=== PATIENT | female | born 1970 | race Caucasian/White ===

== ENCOUNTER → 2016-03-01 | Outpatient (CLI) | payer OTHER ==
--- NOTE | 2016-03-01 14:11 | PN ---
DATE OF SERVICE: 03/01/2016 A 45-year-old lady who has been followed in the Sleep Center for treatment of idiopathic hypersomnia. Presently, she is on treatment with modafinil 400 mg. She is taking medication in the morning after she wakes up at around 4:30 a.m. 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 and then from 3 p.m. until 8 p.m. when she goes to bed she feels significant sleepy. MEDICATION: Modafinil 400 mg q.a.m. During physical exam, patient in no distress. BP 130/70, HR 74, RR 16. Weight 175. BMI 32.5. Temp is 98.2. Oxygen saturation at room air 100%. HEENT: PERRLA, EOMI. LUNGS: Clear. HEART: S1, S2 regular. ABDOMEN: Soft, nontender. EXTREMITIES: No edema. IMPRESSION: 1. Idiopathic hypersomnia, improved on modafinil, but patient still feels sleepy after 12 hours of awakening because at that time medication will ( ). 2. History of headaches. 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 4. Obesity. 5. History of mild snoring. PLAN: 1. We will split time of taking modafinil 1 tablet at 4:30 a.m. and another tablet at 4 hours later at 8:30 a.m. 2. No driving if feeling any sleepiness. 3. Sleep hygiene with regular time in bed for at least 8 hours. Thank you very much for allowing me to participate in the care of your patient. Sincerely, Ramu Meek MD, PhD, FAASM. Diplomat of [place] Board [employer] Medicine, Sleep Medicine Board by [place] [employer] Specialities [place] Board of Internal Medicine Clinical Education Assistant of [facility] [place]
== END | disposition home or self-care (01) ==

== ENCOUNTER → 2017-04-11 | Outpatient (CLI) | payer OTHER ==
--- NOTE | 2017-04-11 17:44 | PN ---
PROGRESS NOTE DATE OF SERVICE: 04/11/2017. 46-year-old lady has been followed in Sleep Center for treatment of excessive daytime sleepiness secondary to possible hypersomnia. Presently, patient on treatment with modafinil 100 mg she is taking at 5:00 a.m. and 100 mg she is taking at 9:00 am. For the morning hours it helps her to feel well, but she still feels sleepy around 5:00 pm. She goes to bed around 8 or 9:00 pm. The patient does not take any other medications. PHYSICAL EXAM: Patient in no distress BP 113/76, HR 60, RR 16. The patient is about the same weight as last time 175 pounds. Afebrile. Temp 97.7. Oropharynx: Oropharynx moderately low position of soft palate. Neck Supple, no JVD. Thyroid is not palpable. LUNGS Clear to percussion and to auscultation. Good air exchange. No wheezing or rhonchi. HEART S1, S2 regular. No murmurs, gallops, or rubs. ABDOMEN Soft and nontender. Bowel sounds are present. No organomegaly appreciated. EXTREMITIES No clubbing or cyanosis. STUDENT DEAN Awake, alert, and oriented X3. Cranial nerves 2 to 7 intact. There is no fasciculation or atrophy. noted. No focal deficits observed. IMPRESSION: 1. Idiopathic hypersomnia, improved on treatment with modafinil. 2. 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 3. Obesity. 4. History of headaches presently about 1 time per month. 5. History of mild snoring. PLAN: 1. Continue treatment with modafinil, possibly increase the dose up to 300 mg a day with a goal to make the patient more alert around 5:00 pm. 2. Sleep hygiene with regular time in bed at least 7.5 hours. 3. No driving if feeling sleepiness. Thank you very much for allowing me to participate in management of your patient. Sincerely, Ramu Meek MD, PhD, FAASM Diplomat of [place] Board of Medical Specialties [place] Board of Internal Medicine Content Assistant of [facility] [place] MMODL / TIGISTN: [id number] /
== END | disposition home or self-care (01) ==
LOC: SLEEP 15:03
PROVIDERS: ATTEND Internal Medicine
DX: G47.11 Idiopathic hypersomnia with long sleep time (principal); E66.9 Obesity, unspecified; R51 Headache; Z79.899 Other long term (current) drug therapy

== ENCOUNTER → 2019-09-17 | Outpatient (CLI) | payer MEDICAID ==
--- NOTE | 2019-09-18 01:23 | SFUN ---
SLEEP CENTER FOLLOW UP NOTE DATE OF SERVICE: 09/17/2019 This 48-year-old lady who had been followed in Sleep Center for hypersomnia. Previously MSLT confirmed sleepiness with mean sleep latency of 10 minutes. Presently, patient continued to have symptoms of excessive daytime sleepiness. [place] Sleepiness Scale today is 17. PHYSICAL EXAMINATION: GENERAL: Patient in no distress. VITAL SIGNS: BP 103/51, HR 68, RR 16, height 5 feet 1-1/2 inches, weight 170 pounds, BMI 31.6, temperature 98.3, oxygen saturation on room air 99%. HEENT: PERRLA, EOMI, evaluation of oropharynx showed tongue protrudes midline. NECK: Supple, no JVD. Thyroid is not palpable. LUNGS: Clear to percussion and to auscultation. Good air exchange. No wheezing or rhonchi. HEART: S1, S2 regular. No murmurs, gallops, or rubs. ABDOMEN: Soft and nontender. Bowel sounds are present. No organomegaly appreciated. EXTREMITIES: No clubbing or cyanosis. DRAWING MACHINE OPERATOR: Awake, alert, and oriented X3. Cranial nerves 2 to 7 intact. There is no fasciculation or atrophy. noted. No focal deficits observed. IMPRESSION: 1. Hypersomnia. 2. 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 3. Mild obesity. 4. History of snoring. 5. History of headaches. PLAN: 1. Prescription for modafinil 200 mg in the morning. 2. Sleep hygiene with regular time in bed for 7-1/2 to 8 hours. 3. Precautions related to driving. No driving if feeling sleepiness. Thank you very much for allowing me to participate in management of your patient. Sincerely, Ramu Meek MD, PhD, FAASM Diplomat of [employer] Board of Medical Specialties French Board of Internal Medicine [place] of [facility] [place] MMODL / IJN: [id number] /
== END | disposition home or self-care (01) ==
LOC: SLEEP 14:01
PROVIDERS: ATTEND Internal Medicine
DX: G47.10 Hypersomnia, unspecified (principal); E66.9 Obesity, unspecified; Z86.69 Personal history of other diseases of the nervous system and sense organs

== ENCOUNTER → 2019-12-24 | Outpatient (CLI) | payer MEDICAID ==
--- NOTE | 2019-12-25 00:16 | SFUN ---
SLEEP CENTER FOLLOW UP NOTE DATE OF SERVICE: 12/24/2019 This 49-year-old lady had been followed in Sleep Center for treatment of significant excessive daytime sleepiness. [place] Sleepiness Scale today is increased to 12. Patient is on treatment with modafinil 300 mg once a day. With this regimen, she feels better until around 4 or 5 p.m., but then feels significantly sleepy in the evening hours. PHYSICAL EXAMINATION: GENERAL: Patient in no distress. VITAL SIGNS: BP 110/66, HR 64, RR 15, height 5 feet 1-1/2 inches, weight 166 pounds, BMI 30.8, temperature 98.2, oxygen saturation at room air 100%. HEENT: PERRLA, EOMI, evaluation of oropharynx showed tongue protrudes midline. NECK: Supple, no JVD. Thyroid is not palpable. LUNGS: Clear to percussion and to auscultation. Good air exchange. No wheezing or rhonchi. HEART: S1, S2 regular. No murmurs, gallops, or rubs. ABDOMEN: Soft and nontender. Bowel sounds are present. No organomegaly appreciated. EXTREMITIES: No clubbing or cyanosis. SPED TEACHER: Awake, alert, and oriented X3. Cranial nerves 2 to 7 intact. There is no fasciculation or atrophy. noted. No focal deficits observed. IMPRESSION: 1. Idiopathic hypersomnia. 2. Very mild obesity. 3. History of headaches. PLAN: 1. Patient will continue treatment with modafinil dose will be increased to 400 mg in the morning once a day. 2. Sleep hygiene with regular time in bed for 7-1/2 to 8 hours. 3. Daytime naps permitted. 4. Extreme precautions to driving. No driving if feeling sleepiness. Thank you very much for allowing me to participate in management of your patient. Sincerely, Ramu Meek MD, PhD, FAASM Diplomat of [place] Board of Medical Specialties Zimbabwe[place] Board of Internal Medicine Car Repairer Helper of [facility] [place] MMODL / TIGISTN: [id number] /
== END | disposition home or self-care (01) ==
LOC: SLEEP 15:42
PROVIDERS: ATTEND Internal Medicine
DX: G47.12 Idiopathic hypersomnia without long sleep time (principal); E66.9 Obesity, unspecified; Z86.69 Personal history of other diseases of the nervous system and sense organs

== ENCOUNTER → 2020-06-30 | Outpatient (CLI) | payer MEDICAID ==
--- NOTE | 2020-06-30 20:11 | SFUN ---
SLEEP CENTER FOLLOW UP NOTE DATE OF SERVICE: 06/30/2020 This 49-year-old lady has been followed in Sleep Center for treatment of hypersomnia. At present the patient is on treatment with modafinil 400 mg a day. With this regimen, she feels well during the first half of the day, but during the second part of the day, starting about 3 or 4 p.m., she feels sleepiness. [place] Sleepiness Scale is 10. PHYSICAL EXAMINATION: GENERAL: A pleasant patient in no distress. VITAL SIGNS: BP 136/69, HR 89, RR 12, height 5 feet 2 inches, weight 170.2, temperature 97.7, oxygen saturation at room air 100%. Body mass index 31.0. HEENT: PERRLA, EOMI. Evaluation of oropharynx showed tongue protrudes midline. NECK: Supple. No JVD. Thyroid is not palpable. LUNGS: Clear to percussion and to auscultation. Good air exchange. No wheezing or rhonchi. HEART: S1, S2 regular. No murmurs, gallops or rubs. ABDOMEN: Soft and nontender. Bowel sounds are present. No organomegaly appreciated. EXTREMITIES: No clubbing or cyanosis. BIRTH ATTENDANT: Awake, alert, and oriented X3. Cranial nerves 2 to 7 intact. There is no fasciculation or atrophy. noted. No focal deficits observed. IMPRESSION: 1. Idiopathic hypersomnia. 2. Mild obesity. BMI 31.0. 3. History of episodes of headaches. 4. Status post ganglion cyst removed from right wrist. 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 PLAN: 1. The patient will continue on modafinil 400 mg in the morning. 2. Additionally, the patient will be started on treatment with Adderall 5 mg at 3 p.m. 3. Sleep hygiene with regular time in bed for 7-1/2 to 8 hours. 4. No driving if feeling any sleepiness. Thank you very much for allowing me to participate in the management of your patient. Sincerely, Ramu Meek MD, PhD, FAASM Diplomat of [place] Board of Medical Specialties [place] Board of Internal Medicine Executor Of Estate of [facility] [place] MMODL / IJN: [id number] /
== END ==
LOC: SLEEP 14:57
PROVIDERS: ATTEND Internal Medicine
DX: G47.11 Idiopathic hypersomnia with long sleep time (principal); E66.9 Obesity, unspecified; Z68.31 Body mass index [BMI] 31.0-31.9, adult; Z86.69 Personal history of other diseases of the nervous system and sense organs; Z86.79 Personal history of other diseases of the circulatory system

== ENCOUNTER → 2020-09-29 | Outpatient (CLI) | payer MEDICAID ==
--- NOTE | 2020-09-30 11:11 | SFUN ---
SLEEP CENTER FOLLOW UP NOTE DATE OF SERVICE: 09/29/2020 This 49-year-old lady has been followed in Sleep Center for treatment of hypersomnia. The patient is on treatment with modafinil 400 mg in the morning and additionally on Adderall 5 mg at 3 p.m. With this regimen, the patient feels well, able to control her sleepiness during the day. [place] Sleepiness Scale today is 5. No side effects of medications. No tachycardia or mood changes after taking Adderall. PHYSICAL EXAMINATION: GENERAL: A pleasant patient without any distress. VITAL SIGNS: BP 124/76, HR 70, RR 15, height 5 feet 2 inches, weight 171, body mass index 31, temperature 97.4, oxygen saturation at room air 99%. HEENT: PERRLA, EOMI, evaluation of oropharynx showed tongue protrudes midline. NECK: Supple, no JVD. Thyroid is not palpable. LUNGS: Clear to percussion and to auscultation. Good air exchange. No wheezing or rhonchi. HEART: S1, S2 regular. No murmurs, gallops, or rubs. ABDOMEN: Soft and nontender. Bowel sounds are present. No organomegaly appreciated. EXTREMITIES: No clubbing or cyanosis. CHILD ADVOCATE: Awake, alert, and oriented X3. Cranial nerves 2 to 7 intact. There is no fasciculation or atrophy. noted. No focal deficits observed. IMPRESSION: 1. Idiopathic hypersomnia. 2. Mild obesity. 3. History of episodes of headaches. 4. Status post ganglion cyst removed from right wrist. 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 PLAN: 1. Continue treatment with modafinil; presently 200 mg at 4:30 a.m. and 200 mg 11 a.m. 2. Adderall 5 mg around 2 p.m. 3. Sleep hygiene with regular time in bed for at least 7-1/2 to 8 hours. 4. Precautions related to driving. No driving if feeling any sleepiness. 5. Daytime naps permitted. 6. Follow-up visit in 4 months. Thank you very much for allowing me to participate in the management of your patient. Sincerely, Ramu Meek MD, PhD, FAASM Diplomat of [place] Board of Medical Specialties Sleep Medicine Board of [place] Board of Internal Medicine Director Of Search Engine Optimization of [facility] [place] MMODL / IJN: [id number] /
== END | disposition home or self-care (01) ==
LOC: SLEEP 15:01
PROVIDERS: ATTEND Internal Medicine
DX: G47.11 Idiopathic hypersomnia with long sleep time (principal); E66.9 Obesity, unspecified; Z98.890 Other specified postprocedural states; Z68.31 Body mass index [BMI] 31.0-31.9, adult

== ENCOUNTER → 2021-03-08 | Outpatient (CLI) | payer MEDICAID ==
--- NOTE | 2021-03-08 17:43 | SFUN ---
SLEEP CENTER FOLLOW UP NOTE DATE OF SERVICE: 03/08/2021 50-year-old lady who has been followed in Sleep Center for treatment of hypersomnia. The patient continued treatment with modafinil 400 mg a day with additional Adderall 5 mg at 3:00 pm. With this regimen, she feels well. Her [place] Sleepiness Scale today is 6. No side effects from medications. No tachycardia. No headaches. PHYSICAL EXAMINATION: GENERAL: Patient in no distress. BP 121/67, HR 80, RR 15, height 5 feet 1-1/2 inches, weight 173.8 pounds, body mass index 32.1, temperature 97, oxygen saturation at room air 100%. NECK: Supple, no JVD. Thyroid is not palpable. LUNGS: Clear to percussion and to auscultation. Good air exchange. No wheezing or rhonchi. HEART: S1, S2 regular. No murmurs, gallops, or rubs. ABDOMEN: Soft and nontender. Bowel sounds are present. No organomegaly appreciated. EXTREMITIES: No clubbing or cyanosis. SECURITIES ADVISER: Awake, alert, and oriented X3. Cranial nerves 2 to 7 intact. There is no fasciculation or atrophy. noted. No focal deficits observed. IMPRESSION: 1. Idiopathic hypersomnia. 2. Mild obesity, body mass index 32.1. 3. History of episodes of headaches before no recent episodes. 4. Status post ganglion cyst removed from right wrist. 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 PLAN: 1. We will continue treatment with modafinil 400 mg a day and Adderall additionally 5 mg at 3:00 pm. 2. Sleep hygiene with regular time in bed for at least 8 hours. 3. Precautions related to driving. No driving if feeling sleepiness. 4. Daytime naps permitted. 5. Follow-up visit in 6 months. Thank you very much for allowing me to participate in management of your patient. Sincerely, Ramu Meek MD, PhD, FAASM Diplomat of [place] Board of Medical Specialties Sleep Medicine Board of [place] Board of Internal Medicine Legal Stenographer of [facility] [place] MMODL / TIGISTN: [id number] /
== END ==
LOC: SLEEP 14:53
PROVIDERS: ATTEND Internal Medicine
DX: G47.11 Idiopathic hypersomnia with long sleep time (principal); E66.9 Obesity, unspecified; Z68.32 Body mass index [BMI] 32.0-32.9, adult; Z98.890 Other specified postprocedural states; Z86.69 Personal history of other diseases of the nervous system and sense organs

== ENCOUNTER → 2021-09-27 | Outpatient (CLI) | payer MEDICAID ==
--- NOTE | 2021-09-27 15:07 | P.PN ---
Subjective DATE: 09/27/2021 FOLLOW UP VISIT. Patient returned to sleep center for follow-up visit related to treatment of significant excessive daytime sleepiness secondary to idiopathic hypersomnia. Presently patient is on treatment with modafinil 400 mg in the morning and Adderall 5 mg by 3 PM. With this regimen patient is able to control sure al ertness during the day. No side effects of medications. 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 . [place] sleepiness scale is 12. MEDICATIONS:1. Modafinil 400 mg every morning 2. Adderall 5 mg at 3 PM During physical exam: GENERAL: A pleasant patient without any distress. VITAL SIGNS: BP 120/75, HR 70, RR 16 , weight 178.4, temperature 97.5, oxygen saturation at room air 100% . HEENT: PERRLA, EOMI. NECK: Supple. No JVD. LUNGS: Clear to percussion and to auscultation. Good air exchange. No wheezing or rhonchi. HEART: S1, S2 regular. ABDOMEN: Soft and nontender. EXTREMITIES: No clubbing or cyanosis. PROFESSIONAL EMPLOYER CONSULTANT: Awake, alert, and oriented x3. No focal deficit. Impressions: 1. Idiopathic hypersomnia 2. Mild obesity. 3. Headaches. 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 5. Status post ganglion cyst removed from the wrist. Plan: 1. Patient will continue treatment with modafinil 400 mg in the morning and Adderall 5 mg at 3 PM. Prescription for Adderall have been written. 2. Sleep hygiene with regular time in bed for at least 8 hours. 3. Daytime naps permitted 4. Precautions related to driving. No driving if feel any sleepiness. Patient is aware about civil and criminal liability for unsafe driving, promised to follow recommendations. 5. Follow up visit in 4-6 months or earlier if patient has any problems. Thank you very much for allowing me to participate in the management of your patient. Ramu Meek MD, PhD, FAASM. Diplomat of [place] Board of Sleep Medicine, Sleep Medicine Board by [place] Board of Internal Medicine Marine Services Technician of [facility] [place]
== END ==
LOC: SLEEP 14:47
PROVIDERS: ATTEND Internal Medicine
DX: G47.11 Idiopathic hypersomnia with long sleep time (principal); E66.9 Obesity, unspecified; R51.9 Headache, unspecified; Z98.890 Other specified postprocedural states

== ENCOUNTER 2021-12-05 08:22 | Emergency (ER) | payer MEDICAID, OTHER ==
[2021-12-05 08:31] VITALS: BP 120/67; PULSE 54; RESP 18; TEMP 98
[2021-12-05] MEDS ORDERED: PROPARACAINE 0.5% OPHTH DROPS 15 ML BTL RIGHT EYE STA (08:42)
[2021-12-05] MEDS ORDERED: FLUORESCEIN STRIPS 1 MG STRIP RIGHT EYE ONE ×2 (08:46)
[2021-12-05] MEDS ORDERED: TOBRA-DEXAMET 0.3-0.1% OPHTH DROPS 2.5 ML BTL RIGHT EYE STA (09:04)
[2021-12-05] MEDS ORDERED: DIPH,PERTUS(ACELL)TETVAC-LF 0.5 ML VIAL IM ONE (09:05)
--- NOTE | 2021-12-05 09:09 | ED ---
General Adult HPI - General Chief complaint: ENT Stated complaint: [facility]-eye injury Time Seen by Provider: 12/05/21 08:41 Source: patient, RN notes reviewed Mode of arrival: ambulatory Limitations: no limitations - History of Present Illness Initial comments: Patient is a pleasant 50-year-old female presenting to the emergency Department with right eye discomfort. Patient states she was accidentally struck with a strip from a towel and the right eye at work prior to arrival. Patient states there is mild discomfort and blurry vision since that time. No history of previous trauma. Patient questions if she needs corrective lenses however does not have any. No other area of injury or concern. Unclear last tetanus. - Related Data Allergies Allergy/AdvReac Type Severity Reaction Status Date / Time cephalexin [From Keflex] AdvReac Nausea & Verified 12/05/21 08:44 Vomiting Review of Systems ROS Statement: Those systems with pertinent positive or pertinent negative responses have been documented in the HPI. ROS Other: All systems not noted in ROS Statement are negative. Constitutional: Denies: fever Eyes: Reports: as per HPI, eye pain, vision change ENT: Denies: ear pain Respiratory: Denies: dyspnea Cardiovascular: Denies: chest pain Endocrine: Denies: fatigue Gastrointestinal: Denies: abdominal pain Genitourinary: Denies: dysuria Musculoskeletal: Denies: back pain Skin: Denies: rash Neurological: Denies: weakness Past Medical History History of Any Multi-Drug Resistant Organisms: None Reported Additional Past Surgical History / Comment(s): cyst removal from R hand Smoking Status: Never smoker Past Alcohol Use History: Rare Past Drug Use History: None Reported General Exam Limitations: no limitations General appearance: alert, in no apparent distress Head exam: Present: atraumatic Eye exam: Present: normal appearance, PERRL, EOMI, other (Resolution of symptoms with proparacaine. Fluorescein uptake with abrasion mid lower pupil, approximately one third of the area. Sledinger negative) Neck exam: Present: normal inspection Respiratory exam: Present: normal lung sounds bilaterally Cardiovascular Exam: Present: regular rate, normal rhythm GI/Abdominal exam: Present: soft. Absent: tenderness Neurological exam: Present: alert, CN II-XII intact Psychiatric exam: Present: normal affect, normal mood Skin exam: Present: normal color Course Vital Signs 12/05/21 08:27 Temperature 98.0 F Pulse Rate 54 L Respiratory 18 Rate Blood Pressure 120/67 O2 Sat by Pulse 99 Oximetry Disposition Clinical Impression: Corneal abrasion Disposition: HOME SELF-CARE Condition: Stable Instructions (If sedation given, give patient instructions): Corneal Abrasion (ED) Additional Instructions: Use antibiotic eyedrops every 4 hours while awake for the next 3 days. Follow- up with [facility]. Any eye problems please follow-up with ophthalmology, number provided. Symptoms should be mostly resolved within 48 hours. Return for worsening vision, drainage, redness or fever, or any other concerns. Is patient prescribed a controlled substance at d/c from ED?: No Referrals: Roger Amin Jr, DO [Primary Care Provider] - 1-2 days Jt Phelps MD [STAFF PHYSICIAN] - 1-2 days Time of Disposition: 09:09
== END 2021-12-05 09:23 | disposition home or self-care (01) ==
LOC: EC 08:22
DX: S05.01XA Injury of conjunctiva and corneal abrasion without foreign body, right eye, initial encounter (principal); Z88.1 Allergy status to other antibiotic agents; Z23 Encounter for immunization; W01.0XXA Fall on same level from slipping, tripping and stumbling without subsequent striking against object, initial encounter
CPT/HCPCS: 90471; 90715; 99283

== ENCOUNTER 2022-10-13 17:47 | Emergency (ER) | payer MEDICAID ==
[2022-10-13 18:01] VITALS: BP 125/75; PULSE 77; RESP 16; TEMP 97.8
--- NOTE | 2022-10-13 19:11 | XR ---
EXAMINATION TYPE: XR ankle complete RT DATE OF EXAM: 10/13/2022 COMPARISON: NONE HISTORY: 51-year-old female twisting injury, pain TECHNIQUE: 3 views FINDINGS: Prominent lateral sided soft tissue swelling. Anterior tibiotalar joint effusion. Small elisabeth ntar heel spur. No acute fracture, subluxation, dislocation. Talar dome is intact. Ankle mortise alessandro ruent. IMPRESSION: Prominent lateral sided soft tissue swelling and underlying ankle joint effusion. Correlate for later al ligamentous injury. No acute osseous abnormality seen.
--- NOTE | 2022-10-13 19:29 | ED ---
General Adult HPI - General Chief complaint: Extremity Injury, Lower Stated complaint: RT ANKLE SPRAIN Time Seen by Provider: 10/13/22 18:07 Source: patient, RN notes reviewed Mode of arrival: ambulatory Limitations: no limitations - History of Present Illness Initial comments: 51-year-old female presents emergency Department with chief complaint of right ankle pain. She states that she was stepping off a porch when she rolled her ankle. She reports that this injury occurred around 1500. She states that she felt not to the ground because of the pain. She states that she was able to bear weight on the ankle initially but has not been walking on it much. She denies any other injury. She denies hitting her head or blood thinners. - Related Data Previous Rx's Medication Instructions Recorded modafiniL [Provigil] 200 mg PO QAM 30 Days #60 tablet 04/11/22 Allergies Allergy/AdvReac Type Severity Reaction Status Date / Time cephalexin [From Keflex] AdvReac Nausea & Verified 10/13/22 18:01 Vomiting Review of Systems ROS Statement: Those systems with pertinent positive or pertinent negative responses have been documented in the HPI. ROS Other: All systems not noted in ROS Statement are negative. Past Medical History Past Medical History: No Reported History History of Any Multi-Drug Resistant Organisms: None Reported Additional Past Surgical History / Comment(s): cyst removal from R hand Smoking Status: Never smoker Past Alcohol Use History: Rare Past Drug Use History: None Reported General Exam Limitations: no limitations General appearance: alert, in no apparent distress Head exam: Present: atraumatic, normocephalic, normal inspection Eye exam: Present: normal appearance, PERRL, EOMI. Absent: scleral icterus, conjunctival injection, periorbital swelling ENT exam: Present: normal exam, mucous membranes moist Neck exam: Present: normal inspection. Absent: tenderness, meningismus, lymphadenopathy Respiratory exam: Present: normal lung sounds bilaterally. Absent: respiratory distress, wheezes, rales, rhonchi, stridor Cardiovascular Exam: Present: regular rate, normal rhythm, normal heart sounds. Absent: systolic murmur, diastolic murmur, rubs, gallop, clicks Extremities exam: Present: tenderness, normal capillary refill, other (DP and PT pulses 2+, right lateral ankle swelling). Absent: full ROM (Mild decreased range of motion due to pain) Back exam: Present: normal inspection Neurological exam: Present: alert, oriented X3 Psychiatric exam: Present: normal affect, normal mood Skin exam: Present: warm, dry, intact, normal color. Absent: rash Course Vital Signs 10/13/22 17:59 Temperature 97.8 F Pulse Rate 77 Respiratory 16 Rate Blood Pressure 125/75 O2 Sat by Pulse 99 Oximetry Medical Decision Making - Medical Decision Making Was pt. sent in by a medical professional or institution (, PA, CONSULTING SME, urgent care, hospital, or senior living...) When possible be specific @ -No Did you speak to anyone other than the patient for history (EMS, parent, family, police, friend...)? What history was obtained from this source @ -No Did you review nursing and triage notes (agree or disagree)? Why? @ -I reviewed and agree with nursing and triage notes Were old charts reviewed (outside hosp., previous admission, EMS record, old EKG, old radiological studies, urgent care reports/EKG's, senior living records)? Report findings @ -No old charts were reviewed Differential Diagnosis (chest pain, altered mental status, abdominal pain women, abdominal pain men, vaginal bleeding, weakness, fever, dyspnea, syncope, headache, dizziness, GI bleed, back pain, seizure, CVA, palpatations, mental health, musculoskeletal)? @ -Differential Musculoskeletal Muscular strain, contusion, ligament sprain, fracture, arthritis, septic arthritis, bursitis, cellulitis, muscle spasm, nerve compression, DVT, arterial occlusion, herpes zoster, electrolyte abnormality, tumor.... This is not meant to be in all inclusive list EKG interpreted by me (3pts min.). @ -none X-rays interpreted by me (1pt min.). @ -XR right ankle shows no evidence of acute fracture, lateral soft tissue sw elling CT interpreted by me (1pt min.). @ -None done U/S interpreted by me (1pt. min.). @ -None done What testing was considered but not performed or refused? (CT, X-rays, U/S, labs)? Why? @ -None What meds were considered but not given or refused? Why? @ -None Did you discuss the management of the patient with other professionals (professionals i.e. , [facility]U, CONSULTING SME, lab, RT, psych nurse, social problems specialist, nursing agency manager, teacher, [place] 9 police officer, director case management)? Give summary @ -No Was smoking cessation discussed for >3mins.? @ -No Was critical care preformed (if so, how long)? @ -No Were there social determinants of health that impacted care today? How? (Homelessness, low income, unemployed, alcoholism, drug addiction, tra nsportation, low edu. Level, literacy, decrease access to med. care, skilled nursing, rehab)? @ -No Was there de-escalation of care discussed even if they declined (Discuss DNR or withdrawal of care, Hospice)? DNR status @ -No What co-morbidities impacted this encounter? (DM, HTN, Smoking, COPD, CAD, Cancer, CVA, ARF, Chemo, Hep., AIDS, mental health diagnosis, sleep apnea, morbid obesity)? @ -None Was patient admitted / discharged? Hospital course, mention meds given and route, prescriptions, significant lab abnormalities, going to OR and other pertinent info. @ -Discharged. Patient presents emergency department chief complaint of right ankle pain. Patient states that she was stepping off her porch earlier today when she twisted her ankle. She has bilateral ankle swelling on the right. XR shows no evidence of acute fracture. Patient placed in aircast. She has crutches at home that she will use. She will follow up with her primary care provider. Patient stable at time of discharge. Case discussed with my attending, Dr. Diop Undiagnosed new problem with uncertain prognosis? @ -No Drug Therapy requiring intensive monitoring for toxicity (Heparin, Nitro, Insulin, Cardizem)? @ -No Were any procedures done? @ -No Diagnosis/symptom? @ -right ankle sprain Acute, or Chronic, or Acute on Chronic? @ -acute Uncomplicated (without systemic symptoms) or Complicated (systemic symptoms)? @ -uncomplicated Side effects of treatment? @ -No Exacerbation, Progression, or Severe Exacerbation? @ -No Poses a threat to life or bodily function? How? (Chest pain, [place], [place], pneumonia, PE, COPD, DKA, ARF, appy, cholecystitis, CVA, Diverticulitis, Homicidal, Suicidal, threat to staff... and all critical care pts) @ -No Disposition Clinical Impression: Right ankle sprain Disposition: HOME SELF-CARE Condition: Stable Instructions (If sedation given, give patient instructions): Ankle Sprain (ED) Additional Instructions: Follow up with your primary care doctor. Rest, ice, elevate the ankle. Take Tylenol and Motrin as needed for pain. Return to the emergency department for new or worsening symptoms. Is patient prescribed a controlled substance at d/c from ED?: No Referrals: Abdelrahman Witt MD [Primary Care Provider] - 1-2 days Time of Disposition: 19:51
== END 2022-10-13 20:32 | disposition home or self-care (01) ==
LOC: EC 17:47
DX: S93.401A Sprain of unspecified ligament of right ankle, initial encounter (principal); Z88.8 Allergy status to other drugs, medicaments and biological substances; X50.1XXA Overexertion from prolonged static or awkward postures, initial encounter
CPT/HCPCS: 99283

== ENCOUNTER → 2022-10-17 | Outpatient (CLI) | payer MEDICAID ==
--- NOTE | 2022-10-17 14:55 | P.PN ---
Subjective DATE: 10/17/2022 FOLLOW UP VISIT. Patient returned to sleep center for follow-up visit related to treatment of significant excessive daytime sleepiness secondary to idiopathic hypersomnia. Presently patient is on treatment with modafinil 400 mg in the morning and Adderall 5 mg at 3 PM. With this regimen patient is able to control alertness during the day. No side effects of medications. . [place] sleepiness scale is 10, which is borderline. MEDICATIONS:1. Modafinil 400 mg every morning 2. Adderall 5 mg at 3 PM During physical exam: GENERAL: A pleasant patient without any distress. VITAL SIGNS: BP 120/73, HR 71, RR 12 , weight 188.0, temperature 97.3, oxygen saturation at room air 97% . HEENT: PERRLA, EOMI. NECK: Supple. No JVD. LUNGS: Clear to percussion and to auscultation. Good air exchange. No wheezing or rhonchi. HEART: S1, S2 regular. ABDOMEN: Soft and nontender. EXTREMITIES: No clubbing or cyanosis. 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 No focal deficit. Impressions: 1. 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 3. Mild obesity. 4. History of headaches. 5. Status post surgical treatment for ganglion cyst of the wrist. Plan: 1. Patient will continue treatment with[] 2. Sleep hygiene with regular time in bed for at least 8 hours. 3. Daytime naps permitted 4. Precautions related to driving. No driving if feel any sleepiness. Patient is aware about civil and criminal liability for unsafe driving, promised to follow recommendations. 5. Follow up visit in 4-6 months or earlier if patient has any problems. Thank you very much for allowing me to participate in the management of your patient. Ramu Meek MD, PhD, FAASM. Diplomat of [employer], Sleep Medicine Board by [employer] Value Analyst of [facility] [place]
== END ==
LOC: 3 N SLEEP 14:34
PROVIDERS: ATTEND Internal Medicine
DX: G47.11 Idiopathic hypersomnia with long sleep time (principal); E66.9 Obesity, unspecified; Z86.69 Personal history of other diseases of the nervous system and sense organs; Z98.890 Other specified postprocedural states; Z88.8 Allergy status to other drugs, medicaments and biological substances
CPT/HCPCS: 99212

== ENCOUNTER → 2023-04-25 | Outpatient (CLI) | payer MEDICAID ==
[2023-04-25 15:14] VITALS: BP 124/78; PULSE 61; RESP 16; TEMP 98
--- NOTE | 2023-04-25 15:25 | P.PN ---
Subjective DATE: 04/25/2023 FOLLOW UP VISIT. Patient returned to sleep center for follow-up visit related to treatment of significant excessive daytime sleepiness secondary to idiopathic hypersomnia. Patient is on treatment with modafinil 400 mg in the morning and Adderall 5 mg at 3 PM. With this regimen of medications patient feels comfortable, her alertn ess is on control. No side effects, no headaches. [place] sleepiness scale is 9. MEDICATIONS:1. Medication 200 mg 2 tablets at 5 AM 2. Adderall 5 mg once a day at 3 PM During physical exam: GENERAL: A pleasant patient without any distress. VITAL SIGNS: See below HEENT: PERRLA, EOMI. NECK: Supple. No JVD. LUNGS: Clear to percussion and to auscultation. Good air exchange. No wheezing or rhonchi. HEART: S1, S2 regular. ABDOMEN: Soft and nontender. EXTREMITIES: No clubbing or cyanosis. 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 No focal deficit. Impressions: 1. 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 3. History of headaches. 4. Mild obesity. 5. Status post surgical treatment for ganglion cyst of the wrist. Plan: 1. Patient will continue treatment with modafinil 400 mg in the morning and Adderall 5 mg at 3 PM 2. Sleep hygiene with regular time in bed for at least 8 hours. 3. Daytime naps permitted 4. Precautions related to driving. No driving if feel any sleepiness. Patient is aware about civil and criminal liability for unsafe driving, promised to follow recommendations. 5. Follow up visit in 4-6 months or earlier if patient has any problems. Thank you very much for allowing me to participate in the management of your patient. Ramu Meek MD, PhD, FAASM. Diplomat of [place] [employer], Sleep Medicine Board by [employer] Transplant Rn of [facility] [place] Objective - Vital Signs Vital signs: Vital Signs Temp 98.0 F 04/25/23 15:05 Pulse 61 04/25/23 15:05 Resp 16 04/25/23 15:05 BP 124/78 04/25/23 15:05 Pulse Ox 99 04/25/23 15:05 FiO2 Intake & Output 04/24/23 04/25/23 04/25/23 18:59 06:59 18:59 Weight 83.064 kg
== END ==
LOC: 3 N SLEEP 14:36
PROVIDERS: ATTEND Internal Medicine
DX: G47.11 Idiopathic hypersomnia with long sleep time (principal); E66.9 Obesity, unspecified; Z86.69 Personal history of other diseases of the nervous system and sense organs; Z68.34 Body mass index [BMI] 34.0-34.9, adult; Z88.1 Allergy status to other antibiotic agents
CPT/HCPCS: 99212

== ENCOUNTER → 2023-11-28 | Outpatient (CLI) | payer MEDICAID ==
[2023-11-28 15:22] VITALS: BP 128/76; PULSE 75; RESP 16; TEMP 98.2
--- NOTE | 2023-11-28 15:39 | P.PROGSL ---
Subjective DATE: 11/28/2023 FOLLOW UP VISIT. Patient returned to sleep center for follow-up visit related to treatment of significant excessive daytime sleepiness secondary to in the present time patient is on treatment with modafinil 400 mg in the morning and Adderall 5 mg around 3 PM. If this regimen for alertness is on control. [place] Sleepiness Scale today is 10, which is borderline. MEDICATIONS:1. Modafinil 200 mg 2 tablets once a day 2. Adderall 5 mg at 3 PM During physical exam: GENERAL: A pleasant patient without any distress. VITAL SIGNS: Please see below, weight 176.4 pounds. HEENT: PERRLA, EOMI. NECK: Supple. No JVD. LUNGS: Clear to percussion and to auscultation. Good air exchange. No wheezing or rhonchi. HEART: S1, S2 regular. ABDOMEN: Soft and nontender. EXTREMITIES: No clubbing or cyanosis. 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 No focal deficit. Impressions: 1. Idiopathic hypersomnia 2. History of headaches. 3. Mild obesity. 4. Status post surgical treatment for ganglion cyst of the wrist. 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 Plan: 1. Patient will continue treatment with modafinil 400 mg once a day and Adderall 5 mg once a day 2. Sleep hygiene with regular time in bed for at least 8 hours. 3. Daytime naps permitted 4. Precautions related to driving. No driving if feel any sleepiness. Patient is aware about civil and criminal liability for unsafe driving, promised to follow recommendations. 5. Follow up visit in 6 months or earlier if patient has any problems. Thank you very much for allowing me to participate in the management of your patient. Ramu Meek MD, PhD, FAASM. Diplomat of [employer], Sleep Medicine Board by [employer] Honing Job Setter of [facility] [place] Objective - Vital Signs Vital Signs: Vital Signs Temp 98.2 F 11/28/23 15:20 Pulse 75 11/28/23 15:20 Resp 16 11/28/23 15:20 BP 128/76 11/28/23 15:20 Pulse Ox 98 11/28/23 15:20 FiO2 Intake & Output 11/27/23 11/28/23 11/28/23 18:59 06:59 18:59 Weight 79.946 kg Home Medications: Home Medications Medication Instructions Recorded Confirmed Type modafiniL [Provigil] 200 mg PO QAM 30 Days #60 tablet 04/11/22 Rx
== END | disposition home or self-care (01) ==
LOC: 3 N SLEEP 14:38
PROVIDERS: ATTEND Internal Medicine
CPT/HCPCS: 99212